=== PATIENT | male | born 1965 ===

== ENCOUNTER 2017-10-21 11:21 | Inpatient (IN) | payer BC, OTHER ==
[2017-10-21] MEDS ORDERED: Ondansetron 4 MG/2 ML SDV IVPUSH ONE (11:32)
--- NOTE | 2017-10-21 11:32 | EDM.PDOC ---
ED HPI GENERAL MEDICAL PROBLEM - General Chief Complaint: Gastrointestinal Problem Stated Complaint: AMB Time Seen by Provider: 10/21/17 11:32 Source of Information: Reports: Patient - History of Present Illness INITIAL COMMENTS - FREE TEXT/NARRATIVE: HISTORY AND PHYSICAL: History of present illness: [Patient presents with abdominal discomfort and bloating is had several episodes of vomiting several episodes of diarrhea since last night he notes a slight umbilical hernia today which she has not noticed in the past He has history of hydrocele no fever chest pain shortness breath headache dizziness or palpitation no urine symptoms Denies previous colonoscopy or diagnosis of Crohn's disease Review of systems: As per history of present illness and below otherwise all systems reviewed and negative. Past medical history: As per history of present illness and as reviewed below otherwise noncontributory. Surgical history: As per history of present illness and as reviewed below otherwise noncontributory. Social history: No reported history of drug or alcohol abuse. Family history: As per history of present illness and as reviewed below otherwise noncontributory. Physical exam: HEENT: Atraumatic, normocephalic, pupils reactive, negative for conjunctival pallor or scleral icterus, mucous membranes moist, throat clear, neck supple, nontender, trachea midline. Lungs: Clear to auscultation, breath sounds equal bilaterally, chest nontender. Heart: S1S2, regular, negative for clicks, rubs, or JVD. Abdomen: Soft, diffusely tender nondistended yet firm. Negative for masses or hepatosplenomegaly. Negative for costovertebral tenderness. Umbilical hernia noted Pelvis: Stable nontender. Genitourinary: Large varicocele noted on the right Rectal: Deferred. Extremities: Atraumatic, negative for cords or calf pain. Neurovascular unremarkable. Neuro: Awake, alert, oriented. Cranial nerves II through XII unremarkable. Cerebellum unremarkable. Motor and sensory unremarkable throughout. Exam nonfocal. Diagnostics: [CBC CMP UA Abdomen flat and upright ] Therapeutics: [Normal saline 500 mL per hour Zofran 8 mg IV ] Impression: Ileus versus early partial bowel obstruction Nausea vomiting diarrhea] Right varicocele Definitive disposition and diagnosis as appropriate pending reevaluation and review of above. Abdominal Pain Score (Numeric/FACES): 0 - Related Data Allergies Allergy/AdvReac Type Severity Reaction Status Date / Time acetaminophen [From Percocet] Allergy Vomiting Verified 07/15/16 01:35 latex Allergy Rash Verified 07/15/16 01:35 oxycodone [From Percocet] Allergy Vomiting Verified 07/15/16 01:35 Home Meds: Home Meds . [No Known Home Meds] 07/15/16 [History] Past Medical History - Past Health History Medical/Surgical History: Denies Medical/Surgical History - Infectious Disease History Infectious Disease History: Reports: Chicken Pox, Measles, Mumps Social & Family History - Family History Family Medical History: Noncontributory - Tobacco Use Smoking Status *Q: Current Every Day Smoker Years of Tobacco use: 30 Packs/Tins Daily: 0.5 - Caffeine Use Caffeine Use: Reports: Coffee, Energy Drinks, Soda, Tea - Recreational Drug Use Recreational Drug Use: No ED ROS GENERAL - Review of Systems Review Of Systems: ROS reveals no pertinent complaints other than HPI. ED EXAM, GENERAL - Physical Exam Exam: See Below Course - Vital Signs Last Recorded V/S: Last Vital Signs Temp 99.0 F 10/21/17 11:25 Pulse 86 10/21/17 11:25 Resp 18 10/21/17 11:25 BP 112/69 10/21/17 11:25 Pulse Ox 96 10/21/17 11:25 - Orders/Labs/Meds Orders: Active Orders 24 hr Category Date Time Status Sodium Chloride 0.9% [Normal Saline] 500 ml Med 10/21/17 11:45 Active IV STAT Medication Orders Sodium Chloride (Normal Saline) 500 mls @ 999 mls/hr IV STAT IRIS Labs: Laboratory Tests 10/21/17 10/21/17 10/21/17 Range/Units 11:45 11:45 12:00 WBC 18.06 H (4.0-11.0) K/uL RBC 4.69 (4.50-5.90) M/uL Hgb 15.0 (13.0-17.0) g/dL Hct 45.2 (38.0-50.0) % MCV 96.4 (80.0-98.0) fL MCH 32.0 (27.0-32.0) pg MCHC 33.2 (31.0-37.0) g/dL RDW Std Deviation 52.0 (28.0-62.0) fl RDW Coeff of Lino 15 (11.0-15.0) % Plt Count 227 (150-400) K/uL MPV 9.00 (7.40-12.00) fL Neut % (Auto) 80.3 H (48.0-80.0) % Lymph % (Auto) 10.2 L (16.0-40.0) % [place] % (Auto) 8.5 (0.0-15.0) % Eos % (Auto) 0.9 (0.0-7.0) % Baso % (Auto) 0.1 (0.0-1.5) % Neut # (Auto) 14.5 H (1.4-5.7) K/uL Lymph # (Auto) 1.8 (0.6-2.4) K/uL [place] # (Auto) 1.5 H (0.0-0.8) K/uL Eos # (Auto) 0.2 (0.0-0.7) K/uL Baso # (Auto) 0.0 (0.0-0.1) K/uL Nucleated RBC % 0.0 /100WBC Nucleated RBCs # 0 K/uL Sodium 140 (136-146) mmol/L Potassium 3.8 (3.5-5.1) mmol/L Chloride 103 (98-110) mmol/L Carbon Dioxide 24 (21-31) mmol/L BUN 23 (6.0-23.0) mg/dL Creatinine 1.0 (0.6-1.5) mg/dL Est Cr Clr Drug Dosing 88.31 mL/min Estimated GFR (MDRD) > 60.0 ml/min Glucose 124 H (60-110) mg/dL Calcium 10.3 (8.8-10.8) mg/dL Total Bilirubin 0.9 (0.1-1.5) mg/dL AST 31 (5-40) IU/L ALT 32 (8-54) IU/L Alkaline Phosphatase 76 (40-150) Total Protein 7.9 (6.0-8.0) g/dL Albumin 4.6 (3.5-5.0) g/dL Globulin 3.3 (2.0-3.5) g/dL Albumin/Globulin Ratio 1.4 (1.3-2.8) Lipase 13 (7-80) U/L Urine Color YELLOW Urine Appearance CLEAR Urine pH 6.0 (5.0-8.0) Ur Specific [place] 1.025 (1.001-1.035) Urine Protein 30 (NEGATIVE) mg/dL Urine Glucose (UA) NEGATIVE (NEGATIVE) mg/dL Urine Ketones 15 H (NEGATIVE) mg/dL Urine Occult Blood NEGATIVE (NEGATIVE) Urine Nitrite NEGATIVE (NEGATIVE) Urine Bilirubin NEGATIVE (NEGATIVE) Urine Urobilinogen 0.2 (<2.0) EU/dL Ur Leukocyte Esterase NEGATIVE (NEGATIVE) Urine RBC 0-1 (0-2/HPF) Urine WBC 13-16 (0-5/HPF) Ur Epithelial Cells OCCASIONAL (NONE-FEW) Urine Bacteria FEW (NEGATIVE) Urine Mucus MODERATE (NONE-MOD) Meds: Medications Generic Name Dose Route Start Last Admin Trade Name Freq PRN Reason Stop Dose Admin Sodium Chloride 500 mls @ 999 mls/hr 10/21/17 11:45 Normal Saline IV STAT IRIS Discontinued Medications Generic Name Dose Route Start Last Admin Trade Name Freq PRN Reason Stop Dose Admin Iopamidol 90 ml 10/21/17 12:57 10/21/17 12:57 Isovue Multipack-370 (76%) IVPUSH 10/21/17 12:58 90 ml ONETIME STA Administration Ondansetron HCl 8 mg 10/21/17 11:32 10/21/17 12:02 Zofran IVPUSH 10/21/17 11:33 8 mg ONETIME ONE Administration Departure - Departure Time of Disposition: 14:00 Disposition: Admitted As Inpatient 64 Condition: Fair Clinical Impression: Ileus, Vomiting, Diarrhea - Discharge Information Forms: ED Department Discharge - My Orders Last 24 Hours: My Active Orders 10/21/17 11:45 Sodium Chloride 0.9% [Normal Saline] 500 ml IV STAT - Assessment/Plan Last 24 Hours: My Active Orders 10/21/17 11:45 Sodium Chloride 0.9% [Normal Saline] 500 ml IV STAT
[2017-10-21] MEDS ORDERED: Sodium Chloride 0.9% 500 ML IV SCH ×2 (11:45→14:15)
[2017-10-21 12:18] LABS: CHLORIDE,CL 103 mmol/L (98-110); SODIUM,NA 140 mmol/L (136-146)
[2017-10-21] MEDS ORDERED: Iopamidol 755 MG/ML 500 ML Multipack Bottle IVPUSH STA (12:57)
--- NOTE | 2017-10-21 13:25 | CT ---
CT of the abdomen and pelvis with contrast. HISTORY: Pain TECHNIQUE: Axial CT images were obtained of the abdomen and pelvis following administration of 90 mL of Isovue-370 in the left forearm without complication. Coronal and sagittal reconstructions obtained . FINDINGS: Mild dependent atelectasis bilaterally. The liver, spleen, adrenal glands, and pancreas appear normal. The gallbladder is normal. No bulky re troperitoneal lymphadenopathy or abdominal ascites. The kidneys enhance and function symmetrically without evidence of obstructive uropathy. The large and small bowel are mildly prominent in caliber with small bowel measuring up to 3.9 cm. Po rtions of the distal small bowel are decompressed and enhancing. The appendix is normal. Small right hydrocele and fluid along the inguinal canal. Otherwise no definite evidence of free fluid. No free a ir. No suspicious osseous abnormalities identified. IMPRESSION: 1. Dilated loops of small bowel with focal areas of decompression and enhancement. The overall pictur e is of an ileus or partial bowel obstruction however given the skip areas and underlying inflammator y condition or Crohn's disease should be considered. 2. Right hydrocele.
[2017-10-21] MEDS ORDERED: Metoclopramide 10 MG/2 ML SDV IV ONE (14:02)
[2017-10-21] MEDS ORDERED: Ondansetron 4 MG/2 ML SDV IVPUSH PRN (14:52)
[2017-10-21] MEDS ORDERED: Morphine 4 MG/ML Syringe IVPUSH PRN (14:52)
--- NOTE | 2017-10-21 15:07 | PCM.HP ---
H&P History of Present Illness - General Date of Service: 10/21/17 Admit Problem/Dx: Admission Diagnosis/Problem Admission Diagnosis/Problem Ileus Source of Information: Patient History Limitations: Reports: No Limitations - History of Present Illness Initial Comments - Free Text/Narative: This 52 year old male with little pmh, presented to the ED today with concerns of N/V, diarrhea and dehydration. He reports last evening about midnight he started having diarrhea. Approximately 1 hr later he started becoming nauseated and vomiting. He reports this was accompanied by abdominal distension and abdominal cramping. He denies black or bloody BMs, and no hematemesis. He denies recent travel, antibiotic use or questionable food. He reports 2 or so years ago he had Salmonella for contaminated Spinach. He reports feeling very dehydrated, lips and mouth are dry with very little saliva production. Small fevers and chills, but did not check his temperature. No URI symptoms, no chest pain or palpitations. No urinary symptoms. He denies CAD, DM or abdominal surgeries. He has never been diagnosed with IBS/IBD and has never had a diagnostic colonscopy. He reports being given cards to check stool and those came back normal. He reports 30+ years of smoking history, currently smokes 5-6 cigarettes daily, social alcohol use, and no recreational drug use. In the ED, leukocytosis noted at 18,060. CMP WNL. UA negative, some pyuria noted. Temp 99.0 otherwise VS stable, no tachycardia or hypotension. He was given Zofran IV. Abd/pelvis CT revealed dilated loops of small bowel with focal areas of decompression and enhancement, overall picture is of ileus or partial bowel obstruction however given the skips areas an underlying inflammatory condition of Crohn's disease could be considers. He will be admitted inpatient for possible ileus, possible partial bowel obstruction. Abdominal Pain Score (Numeric/FACES): 0 - Related Data Allergies/Adverse Reactions: Allergies Allergy/AdvReac Type Severity Reaction Status Date / Time acetaminophen [From Percocet] Allergy Vomiting Verified 07/15/16 01:35 latex Allergy Rash Verified 07/15/16 01:35 oxycodone [From Percocet] Allergy Vomiting Verified 07/15/16 01:35 Home Medications: Home Meds . [No Known Home Meds] 07/15/16 [History] Past Medical History - Past Health History Medical/Surgical History: Denies Medical/Surgical History Cardiovascular History: Reports: None. Denies: Afib, Blood Clots/VTE/DVT, CAD, High Cholesterol, Hypertension, [place] Respiratory History: Reports: None. Denies: Asthma, COPD, PE Gastrointestinal History: Reports: None. Denies: Bowel Obstruction, GERD, GI Bleed, Inflammatory Bowel Disease, Irritable Bowel Syndrome Genitourinary History: Reports: None. Denies: Acute Renal Failure, Chronic Renal Insuffiency Musculoskeletal History: Reports: None Neurological History: Reports: None. Denies: CVA, Migraines, TIA Psychiatric History: Reports: None Endocrine/Metabolic History: Reports: None. Denies: Diabetes, Type II, Hypothyroidism Dermatologic History: Reports: None - Infectious Disease History Infectious Disease History: Reports: Chicken Pox, Measles, Mumps - Past Surgical History GI Surgical History: Reports: None Musculoskeletal Surgical History: Reports: Arthroscopic Knee (L knee) Social & Family History - Family History Family Medical History: Noncontributory - Tobacco Use Smoking Status *Q: Current Every Day Smoker Tobacco Use Within Last Twelve Months: Cigarettes Years of Tobacco use: 30 Packs/Tins Daily: 0.5 - Caffeine Use Caffeine Use: Reports: Coffee, Energy Drinks, Soda, Tea - Alcohol Use Alcohol Use History: No Alcohol Use Frequency: Socially - Recreational Drug Use Recreational Drug Use: No - Living Situation & Occupation Living situation: Reports: Occupation: 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 Denies: Headaches, Sinus Congestion, Sore Throat, Visual Changes Pulmonary: Reports: No Symptoms. Denies: Shortness of Breath, Wheezing, Cough, Sputum Cardiovascular: Reports: Lightheadedness. Denies: Chest Pain, Palpitations, Edema Gastrointestinal: Reports: Abdominal Pain (some cramping diffusely), Diarrhea, Distension, Nausea, Vomiting. Denies: Black Stool, Bloody Stool, Hematemesis, Hematochezia Genitourinary: Reports: No Symptoms. Denies: Dysuria, Frequency, Burning, Pain Musculoskeletal: Reports: No Symptoms. Denies: Neck Pain Skin: Reports: No Symptoms Psychiatric: Reports: No Symptoms. Denies: Confusion Neurological: Reports: No Symptoms. Denies: Confusion Hematologic/Lymphatic: Reports: No Symptoms. Denies: Anemia Exam - Exam Exam: See Below - Vital Signs Vital Signs: Last Vital Signs Temp 100.4 F 10/21/17 14:53 Pulse 68 10/21/17 14:53 Resp 18 10/21/17 14:53 BP 109/67 10/21/17 14:53 Pulse Ox 96 10/21/17 14:53 Weight: 73.936 kg - Exam General: Alert, Oriented, Cooperative HEENT: Conjunctiva Clear. No: Mucosa Moist & [place] (mouth and lips very dry and cracking. ) Neck: Supple, Trachea Midline, Full Range of Motion. No: Lymphadenopathy Lungs: Clear to Auscultation, Normal Respiratory Effort Cardiovascular: Regular Rate, Regular Rhythm GI/Abdominal Exam: Normal Bowel Sounds, Soft, No Mass, Distended, Tender (scant tenderness throughout). No: Guarding, Rigid Extremities: Normal Inspection, Normal Range of Motion, Non-Tender, No Pedal Edema, Normal Capillary Refill Skin: Warm, Dry, Intact Neuro Extensive - Mental Status: Alert, Oriented x3, Normal Mood/Affect, Normal Cognition Neuro Extensive - Motor, Sensory, Reflexes: CN II-XII Intact, Normal Gait Psychiatric: Alert, Normal Affect, Normal Mood - Patient Data Result Diagrams: 10/21/17 11:45 10/21/17 11:45 *Q Meaningful Use (ADM) - VTE *Q VTE Criteria *Q: - VTE Risk Assess *Q Each Risk Factor Represents 1 Point: Age 41 - 59 years, Obesity ( BMI > 25 kg/m2 ) Total Score 1 Point Risk Factors: 2 Each Risk Factor Represents 2 Points: None Total Score 2 Point Risk Factors: 0 Each Risk Factor Represents 3 Points: None Total Score 3 Point Risk Factors: 0 Each Risk Factor Represents 5 Points: None Total Score 5 Point Risk Factors: 0 Venous Thromboembolism Risk Factor Score *Q: 2 - Stroke *Q Stroke Criteria *Q: - AMI *Q AMI Criteria *Q: - Problem List (1) Ileus SNOMED Code(s): 702207440 ICD Code: K56.7 - ILEUS, UNSPECIFIED Status: Acute Current Visit: Yes (2) Partial bowel obstruction SNOMED Code(s): 94783665 ICD Code: K56.600 - PARTIAL INTESTINAL OBSTRUCTION, UNSPECIFIED TO CAUSE Status: Acute Current Visit: Yes Qualifiers: Intestinal obstruction type: unspecified Qualified Code(s): K56.600 - Partial intestinal obstruction, unspecified as to cause (3) Nausea & vomiting SNOMED Code(s): 70398743 ICD Code: R11.2 - NAUSEA WITH VOMITING, UNSPECIFIED Status: Acute Current Visit: Yes Qualifiers: Vomiting Intractability: non-intractable (4) Diarrhea SNOMED Code(s): 12249960 ICD Code: R19.7 - DIARRHEA, UNSPECIFIED Status: Acute Current Visit: Yes Problem List Initiated/Reviewed/Updated: Yes Orders Last 24hrs: Active Orders 24 hr Category Date Time Status Ambulate [RC] ASDIRECTED Care 10/21/17 14:52 Ordered Intake and Output [RC] QSHIFT Care 10/21/17 14:53 Ordered May Shower [RC] ASDIRECTED Care 10/21/17 14:52 Ordered Oxygen Therapy [RC] PRN Care 10/21/17 14:52 Ordered Up ad Anastasia [RC] ASDIRECTED Care 10/21/17 14:52 Ordered VTE/DVT Education [RC] PER UNIT ROUTINE Care 10/21/17 14:52 Ordered Vital Signs [RC] Q4H Care 10/21/17 14:52 Ordered NPO [Nothing Per Oral Diet] [DIET] Diet 10/21/17 Dinner Ordered BASIC METABOLIC PANEL,BMP [CHEM] AM Lab 10/22/17 05:11 Ordered BASIC METABOLIC PANEL,BMP [CHEM] AM Lab 10/23/17 05:11 Ordered BASIC METABOLIC PANEL,BMP [CHEM] AM Lab 10/24/17 05:11 Ordered CBC WITH AUTO DIFF [HEME] AM Lab 10/22/17 05:11 Ordered CBC WITH AUTO DIFF [HEME] AM Lab 10/23/17 05:11 Ordered CBC WITH AUTO DIFF [HEME] AM Lab 10/24/17 05:11 Ordered Enoxaparin [Lovenox] Med 10/22/17 09:00 Ordered 30 mg SUBCUT DAILY Lactated Ringers @ 125 MLS/HR(1000ml) Med 10/21/17 15:00 Ordered Lactated Ringers [Ringers, Lactated] 1,000 ml IV ASDIRECTED Levofloxacin/Dextrose 5%-Water [Levaquin in D5W 750 MG/ Med 10/21/17 15:00 Ordered 150 ML] 750 mg Premix Bag 1 bag IV Q24H Morphine Med 10/21/17 14:52 Ordered 3 mg IVPUSH Q2H PRN Ondansetron [Zofran] Med 10/21/17 14:52 Ordered 4 mg IVPUSH Q4H PRN Pantoprazole [ProTONIX IV] Med 10/21/17 14:54 Ordered 40 mg IV Q12HR Sodium Chloride 0.9% [Normal Saline] 500 ml Med 10/21/17 14:15 Active IV STAT metroNIDAZOLE/Normal Saline [Flagyl 500 MG in NS 100 ML Med 10/21/17 14:56 Ordered ] 500 mg Premix Bag 1 bag IV QID Resuscitation Status Routine Resus Stat 10/21/17 14:52 Ordered Medication Orders Enoxaparin Sodium (Lovenox) 30 mg SUBCUT DAILY IRIS Sodium Chloride (Normal Saline) 500 mls @ 999 mls/hr IV STAT IRIS Sodium Chloride (Normal Saline) 500 mls @ 150 mls/hr IV STAT IRIS Lactated Ringer's (Ringers, Lactated) 1,000 mls @ 125 mls/hr IV ASDIRECTED IRIS Levofloxacin/Dextrose 750 mg/ (Premix) 150 mls @ 100 mls/hr IV Q24H IRIS Metronidazole 500 mg/ Premix 100 mls @ 100 mls/hr IV QID IRIS Morphine Sulfate (Morphine) 3 mg IVPUSH Q2H PRN PRN Reason: Pain (severe 7-10) Stop: 10/22/17 14:54 Ondansetron HCl (Zofran) 4 mg IVPUSH Q4H PRN PRN Reason: Nausea Pantoprazole Sodium (Protonix Iv) 40 mg IV Q12HR [facility] Assessment/Plan Comment:: This 52 year old male admitted with possible ileus or possible partial bowel obstruction, N/V and diarrhea 1. Possible ileus or possible partial bowel obstruction: Will consult Dr Collado , she is aware of patient. This may be from viral/bacterial gastroenteritis. Will attempt to obtain stool studies. Will place on bowel rest, administer IVFs , as well as Levaquin and Flagyl. Morphine for pain control PRN, he reports he has had this before with his Salmonella infection and tolerates it well. Zofran PRN nausea. VTE: Lovenox Dispo: 1-3 days pending improvement
[2017-10-21] MEDS: Lactated Ringers 1,000 ML IV SCH (15:19)
[2017-10-21] MEDS: Pantoprazole 40 MG Vial IV SCH ×2 (15:23→21:09)
[2017-10-21] MEDS: Levofloxacin/Dextrose 5%-Water 750 MG in Premix Bag 1 BAG IV SCH (15:27)
[2017-10-21] MEDS ORDERED: Lactated Ringers 1,000 ML IV ONE (15:30)
--- NOTE | 2017-10-21 16:33 | PCM.CONS ---
H&P History of Present Illness - General Date of Service: 10/21/17 Admit Problem/Dx: Admission Diagnosis/Problem Admission Diagnosis/Problem Ileus Source of Information: Patient History Limitations: Reports: No Limitations - History of Present Illness Initial Comments - Free Text/Narative: Patient is a 52 year male who presents with 12-24 hours of abdominal pain. This was associated with diarrhea, abdominal bloating nausea and vomiting. He had salmonella infection in the past and said that this felt similar. He works as a head chef on a [employer] and states that a GI bug recently went through. He denies melena, hematochezia, or hematemesis. He denies fevers or chills. He has never had issues with his bowels in the past (other than a salmonella infection). He knows that he has a right sided hydrocele. He denies ever having a colonoscopy. Abdominal Pain Score (Numeric/FACES): 0 - Related Data Allergies/Adverse Reactions: Allergies Allergy/AdvReac Type Severity Reaction Status Date / Time acetaminophen [From Percocet] Allergy Vomiting Verified 07/15/16 01:35 latex Allergy Rash Verified 07/15/16 01:35 oxycodone [From Percocet] Allergy Vomiting Verified 07/15/16 01:35 Home Medications: Home Meds . [No Known Home Meds] 07/15/16 [History] Past Medical History - Past Health History Medical/Surgical History: Denies Medical/Surgical History Cardiovascular History: Reports: None. Denies: Afib, Blood Clots/VTE/DVT, CAD, High Cholesterol, Hypertension, [place] Respiratory History: Reports: None. Denies: Asthma, COPD, PE Gastrointestinal History: Reports: None. Denies: Bowel Obstruction, GERD, GI Bleed, Inflammatory Bowel Disease, Irritable Bowel Syndrome Genitourinary History: Reports: None. Denies: Acute Renal Failure, Chronic Renal Insuffiency Musculoskeletal History: Reports: None Neurological History: Reports: None. Denies: CVA, Migraines, TIA Psychiatric History: Reports: None Endocrine/Metabolic History: Reports: None. Denies: Diabetes, Type II, Hypothyroidism Other Endocrine/Metabolic History: states he was pre diabetic Dermatologic History: Reports: None - Infectious Disease History Infectious Disease History: Reports: Chicken Pox, Measles, Mumps - Past Surgical History GI Surgical History: Reports: None Musculoskeletal Surgical History: Reports: Arthroscopic Knee (L knee) Social & Family History - Family History Family Medical History: Noncontributory - Tobacco Use Smoking Status *Q: Current Every Day Smoker Years of Tobacco use: 30 Packs/Tins Daily: 0.5 - Caffeine Use Caffeine Use: Reports: Coffee, Energy Drinks, Soda, Tea - Alcohol Use Date of Last Drink: 08/29/17 - Recreational Drug Use Recreational Drug Use: No - Living Situation & Occupation Living situation: Reports: 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 General: Reports: No Symptoms Pulmonary: Reports: No Symptoms Cardiovascular: Reports: No Symptoms Gastrointestinal: Reports: Abdominal Pain, Anorexia, Diarrhea, Decreased Appetite, Nausea, Vomiting Exam - Exam Exam: See Below - Vital Signs Vital Signs: Last Vital Signs Temp 37.2 C 10/21/17 15:05 Pulse 64 10/21/17 15:05 Resp 18 10/21/17 15:05 BP 122/77 10/21/17 15:05 Pulse Ox 96 10/21/17 15:05 Weight: 73.936 kg - Exam General: Alert, Oriented HEENT: Conjunctiva Clear, Posterior Pharynx Clear, Pupils Equal, Other (mucosa dry ) Lungs: Clear to Auscultation, Normal Respiratory Effort Cardiovascular: Regular Rate, Regular Rhythm GI/Abdominal Exam: Soft, Non-Tender, No Mass, Other (mild distension throughout. Small reducible umbilical hernia. ) (Male) Exam: No Hernia, Normal Inspection. No: Inguinal Lymphadenopathy, Scrotal Swelling Back Exam: Normal Inspection Extremities: Normal Inspection, No Pedal Edema Skin: Warm, Dry, Intact Neuro Extensive - Mental Status: Alert, Oriented x3, Normal Mood/Affect, Normal Cognition - Patient Data Result Diagrams: 10/21/17 11:45 10/21/17 11:45 Consult PN Assessment/Plan Procedures: Procedures ASSAY OF BLOOD/URIC ACID (07/15/16) COMPLETE CBC W/AUTO DIFF WBC (07/15/16) CT LOWER EXTREMITY W/O DYE (07/20/16) EMERGENCY DEPT VISIT (07/15/16) ROUTINE VENIPUNCTURE (07/15/16) X-RAY EXAM OF FOOT (07/15/16) (1) Diarrhea SNOMED Code(s): 06104542 Code(s): R19.7 - DIARRHEA, UNSPECIFIED Current Visit: Yes (2) Ileus SNOMED Code(s): 339938988 Code(s): K56.7 - ILEUS, UNSPECIFIED Current Visit: Yes (3) Nausea & vomiting SNOMED Code(s): 23912075 Code(s): R11.2 - NAUSEA WITH VOMITING, UNSPECIFIED Current Visit: Yes Qualifiers: Vomiting Intractability: non-intractable (4) Partial bowel obstruction SNOMED Code(s): 25426986 Code(s): K56.600 - PARTIAL INTESTINAL OBSTRUCTION, UNSPECIFIED TO CAUSE Current Visit: Yes Qualifiers: Intestinal obstruction type: unspecified Qualified Code(s): K56.600 - Partial intestinal obstruction, unspecified as to cause Problem List Initiated/Reviewed/Updated: Yes Plan: The patient has a benign appearing abdomen with just mild distension and no tenderness. This is most likely an ileus or partial sbo due to infectious etiology. I would continue with NPO status and resuscitation. The patient already feels like he is less distended, denies any nausea, and has not had a BM since admission. Stool cultures have been ordered. If he is feeling better in the morning and his labs are improving can try to advance diet slowly. The patient is not from here, but should have a follow up colonoscopy after discharge with a surgeon or GI specialist back in [place] (where he lives). Will continue to follow patient while here. Please call with any questions or concerns.
[2017-10-21] MEDS: metroNIDAZOLE/Normal Saline 500 MG in Premix Bag 1 BAG IV SCH ×2 (17:06→23:32)
[2017-10-22] MEDS: Lactated Ringers 1,000 ML IV SCH ×2 (03:48→13:54)
[2017-10-22] MEDS: metroNIDAZOLE/Normal Saline 500 MG in Premix Bag 1 BAG IV SCH ×3 (05:35→17:37)
[2017-10-22 06:25] LABS: CHLORIDE,CL 108 mmol/L (98-110); SODIUM,NA 141 mmol/L (136-146)
--- NOTE | 2017-10-22 07:32 | PCM.PN ---
- General Info Date of Service: 10/22/17 Admission Dx/Problem (Free Text): Admission Diagnosis/Problem Admission Diagnosis/Problem Ileus Subjective Update: Doing much better this am. Passing gas and did have "runny" loose stool this am. Abd pain has been relieved. No pain. Feeling very hungry. Functional Status: Reports: Pain Controlled, Ambulating. Denies: New Symptoms - Review of Systems General: Denies: Fever, Weakness, Fatigue HEENT: Denies: Headaches, Visual Changes Pulmonary: Denies: Shortness of Breath, Hemoptysis Cardiovascular: Denies: Chest Pain, Palpitations, Edema Gastrointestinal: Reports: Diarrhea. Denies: Abdominal Pain, Constipation, Nausea, Vomiting Genitourinary: Denies: Dysuria, Hematuria Musculoskeletal: Denies: Neck Pain, Leg Pain Skin: Denies: Cyanosis Neurological: Denies: Confusion, Dizziness, Headache Psychiatric: Denies: Confusion - Patient Data Vitals - Most Recent: Last Vital Signs Temp 98.1 F 10/22/17 04:00 Pulse 58 L 10/22/17 04:00 Resp 16 10/22/17 04:00 BP 108/63 10/22/17 04:00 Pulse Ox 95 10/22/17 04:00 Weight - Most Recent: 73.936 kg I&O - Last 24 Hours: Intake & Output 10/21/17 10/22/17 10/22/17 22:59 06:59 14:59 Intake Total 250 2066 Output Total 375 Balance 250 1691 Lab Results Last 24 Hours: Laboratory Results - last 24 hr 10/22/17 10/22/17 Range/Units 05:35 05:35 WBC 5.92 (4.0-11.0) K/uL RBC 4.22 L (4.50-5.90) M/uL Hgb 13.5 (13.0-17.0) g/dL Hct 41.2 (38.0-50.0) % MCV 97.6 (80.0-98.0) fL MCH 32.0 (27.0-32.0) pg MCHC 32.8 (31.0-37.0) g/dL RDW Std Deviation 53.9 (28.0-62.0) fl RDW Coeff of Lino 15 (11.0-15.0) % Plt Count 200 (150-400) K/uL MPV 8.80 (7.40-12.00) fL Neut % (Auto) 44.4 L (48.0-80.0) % Lymph % (Auto) 38.5 (16.0-40.0) % [place] % (Auto) 13.5 (0.0-15.0) % Eos % (Auto) 3.4 (0.0-7.0) % Baso % (Auto) 0.2 (0.0-1.5) % Neut # (Auto) 2.6 (1.4-5.7) K/uL Lymph # (Auto) 2.3 (0.6-2.4) K/uL [place] # (Auto) 0.8 (0.0-0.8) K/uL Eos # (Auto) 0.2 (0.0-0.7) K/uL Baso # (Auto) 0.0 (0.0-0.1) K/uL Nucleated RBC % 0.0 /100WBC Nucleated RBCs # 0 K/uL Sodium 141 (136-146) mmol/L Potassium 4.3 (3.5-5.1) mmol/L Chloride 108 (98-110) mmol/L Carbon Dioxide 26 (21-31) mmol/L BUN 18 (6.0-23.0) mg/dL Creatinine 0.9 (0.6-1.5) mg/dL Est Cr Clr Drug Dosing 98.12 mL/min Estimated GFR (MDRD) > 60.0 ml/min Glucose 92 (60-110) mg/dL Calcium 8.5 L (8.8-10.8) mg/dL [place] Results Last 24 Hours: Microbiology 10/21/17 16:39 Clostridium difficile Toxin A&B (M) - Final Stool / Feces Negative for C.Diff Toxin/AG Stool for WBCs - Final POSITIVE FOR WBC'S 10/21/17 16:39 Campylobacter Antigen Assay - Final Stool / Feces NEGATIVE CAMPYLOBACTER AG Med Orders - Current: Current Medications Enoxaparin Sodium (Lovenox) 30 mg SUBCUT DAILY ON LICENSE OF [facility] Lactated Ringer's (Ringers, Lactated) 1,000 mls @ 125 mls/hr IV ASDIRECTED [facility] Last Admin: 10/22/17 03:48 Dose: 125 mls/hr Levofloxacin/Dextrose 750 mg/ (Premix) 150 mls @ 100 mls/hr IV Q24H ON LICENSE OF [facility] Last Admin: 10/21/17 15:27 Dose: 100 mls/hr Metronidazole 500 mg/ Premix 100 mls @ 100 mls/hr IV QID ON LICENSE OF [facility] Last Admin: 10/22/17 05:35 Dose: 100 mls/hr Morphine Sulfate (Morphine) 3 mg IVPUSH Q2H PRN PRN Reason: Pain (severe 7-10) Stop: 10/22/17 14:54 Ondansetron HCl (Zofran) 4 mg IVPUSH Q4H PRN PRN Reason: Nausea Pantoprazole Sodium (Protonix Iv) 40 mg IV Q12HR ON LICENSE OF [facility] Last Admin: 10/21/17 21:09 Dose: 40 mg Discontinued Medications Sodium Chloride (Normal Saline) 500 mls @ 999 mls/hr IV STAT [facility] Sodium Chloride (Normal Saline) 500 mls @ 150 mls/hr IV STAT [facility] Lactated Ringer's (Ringers, Lactated) 1,000 mls @ 999 mls/hr IV .BOLUS ONE Stop: 10/21/17 16:30 Last Admin: 10/21/17 15:08 Dose: 999 mls/hr Iopamidol (Isovue Multipack-370 (76%)) 90 ml IVPUSH ONETIME STA Stop: 10/21/17 12:58 Last Admin: 10/21/17 12:57 Dose: 90 ml Metoclopramide HCl (Reglan) 10 mg IV ONETIME ONE Stop: 10/21/17 14:03 Last Admin: 10/21/17 16:55 Dose: Not Given Ondansetron HCl (Zofran) 8 mg IVPUSH ONETIME ONE Stop: 10/21/17 11:33 Last Admin: 10/21/17 12:02 Dose: 8 mg - Exam Quality Assessment: DVT Prophylaxis General: Alert, Oriented, Cooperative, No Acute Distress HEENT: Pupils Equal, Pupils Reactive, EOMI, Mucous Membr. Moist/[place] Neck: Supple, Trachea Midline, No JVD Lungs: Clear to Auscultation, Normal Respiratory Effort Cardiovascular: Regular Rate, Regular Rhythm, No Murmurs GI/Abdominal Exam: Normal Bowel Sounds, Soft, Non-Tender, No Organomegaly, No Distention (Male) Exam: Deferred Back Exam: Normal Inspection Extremities: Normal Inspection, Non-Tender, No Pedal Edema, Normal Capillary Refill Peripheral Pulses: 2+: Radial (L), Radial (R), Posterior Tibial (L), Posterior Tibial (R), Dorsalis Pedis (L), Dorsalis Pedis (R) Skin: Warm, Dry, Intact Neurological: No New Focal Deficit Psy/Mental Status: Alert, Normal Affect, Normal Mood - Problem List & Annotations (1) Diarrhea SNOMED Code(s): 99112824 Code(s): R19.7 - DIARRHEA, UNSPECIFIED Status: Acute Priority: High Current Visit: Yes (2) Ileus SNOMED Code(s): 920148691 Code(s): K56.7 - ILEUS, UNSPECIFIED Status: Acute Priority: High Current Visit: Yes (3) Nausea & vomiting SNOMED Code(s): 27239043 Code(s): R11.2 - NAUSEA WITH VOMITING, UNSPECIFIED Status: Resolved Priority: High Current Visit: Yes Qualifiers: Vomiting Intractability: non-intractable (4) Partial bowel obstruction SNOMED Code(s): 65060550 Code(s): K56.600 - PARTIAL INTESTINAL OBSTRUCTION, UNSPECIFIED TO CAUSE Status: Acute Priority: High Current Visit: Yes Qualifiers: Intestinal obstruction type: unspecified Qualified Code(s): K56.600 - Partial intestinal obstruction, unspecified as to cause - Problem List Review Problem List Initiated/Reviewed/Updated: Yes - Plan Plan:: 52 year old male admitted 10/21/17 with possible ileus or possible partial bowel obstruction, N/V and diarrhea. 1. Possible ileus or possible partial bowel obstruction: Stool studies negative. Passing gas and 1 bm this morning. Will advance diet as tolerated. Cont. Levaquin and Flagyl day 2 as may be viral/bacterial gastroenteritis. Cont. to be afebrile with no leukocytosis. Cont. Morphine for pain control PRN and Zofran PRN fpr Nausea nausea. VTE: SCD,Lovenox Dispo: 1-2 days pending improvement. Will need follow-up EGD/Colonscopy after discharge in [place], [place] where patient is from.
[2017-10-22] MEDS: Pantoprazole 40 MG Vial IV SCH ×2 (08:55→21:17)
[2017-10-22] MEDS: Enoxaparin 30 MG/0.3 ML Syringe SUBCUT SCH ×2 (08:55→09:01)
[2017-10-22] MEDS ORDERED: Calcium Carbonate 500 MG Tab.Chew PO ONE (10:07)
[2017-10-22] MEDS: Levofloxacin/Dextrose 5%-Water 750 MG in Premix Bag 1 BAG IV SCH (15:28)
[2017-10-23] MEDS: metroNIDAZOLE/Normal Saline 500 MG in Premix Bag 1 BAG IV SCH ×2 (00:19→06:57)
[2017-10-23] MEDS: Lactated Ringers 1,000 ML IV SCH (01:43)
[2017-10-23 06:38] LABS: CHLORIDE,CL 110 mmol/L (98-110); SODIUM,NA 140 mmol/L (136-146)
[2017-10-23] MEDS ORDERED: Calcium Carbonate 500 MG Tab.Chew PO ONE (07:31)
[2017-10-23 08:39] VITALS: BP 123/60
[2017-10-23] MEDS: Pantoprazole 40 MG Vial IV SCH (08:46)
[2017-10-23] MEDS: Enoxaparin 30 MG/0.3 ML Syringe SUBCUT SCH (08:50)
--- NOTE | 2017-10-23 09:39 | PCM.DCSUM1 ---
Discharge Summary - Hospital Course HPI Initial Comments: 52 year old male admitted 10/21/17 with possible ileus or possible partial bowel obstruction, N/V and diarrhea. Brief History: 52 year old male with little pmh, presented to the ED today with concerns of N/V, diarrhea and dehydration. He reported that evening before admission about midnight he started having diarrhea. Approximately 1 hr later he started becoming nauseated and vomiting. He reported this was accompanied by abdominal distension and abdominal cramping. He denied black or bloody BMs, and no hematemesis. He denied recent travel, antibiotic use or questionable food. He reported 2 or so years ago he had Salmonella from contaminated Spinach. He reported feeling very dehydrated, lips and mouth were dry with very little saliva production. Slight fevers and chills, but did not check his temperature. No URI symptoms, no chest pain or palpitations. No urinary symptoms. He denied CAD, DM or abdominal surgeries. He has never been diagnosed with IBS/IBD and has never had a diagnostic colonscopy. He reported being given cards to check stool and those came back normal. He reported 30+ years of smoking history, currently smokes 5-6 cigarettes daily, social alcohol use, and no recreational drug use. - Discharge Data Discharge Date: 10/23/17 Discharge Disposition: Home, Self-Care 01 Condition: Good - Discharge Diagnosis/Problem(s) (1) Diarrhea SNOMED Code(s): 61254500 ICD Code: R19.7 - DIARRHEA, UNSPECIFIED Status: Acute Priority: High (2) Ileus SNOMED Code(s): 118703645 ICD Code: K56.7 - ILEUS, UNSPECIFIED Status: Resolved Priority: High (3) Nausea & vomiting SNOMED Code(s): 29841821 ICD Code: R11.2 - NAUSEA WITH VOMITING, UNSPECIFIED Status: Resolved Priority: High Qualifiers: Vomiting Intractability: non-intractable (4) Partial bowel obstruction SNOMED Code(s): 80941298 ICD Code: K56.600 - PARTIAL INTESTINAL OBSTRUCTION, UNSPECIFIED TO CAUSE Status: Resolved Priority: High Qualifiers: Intestinal obstruction type: unspecified Qualified Code(s): K56.600 - Partial intestinal obstruction, unspecified as to cause - Patient Summary/Data Consults: Consultations 10/21/17 15:29 Consult to Physician [CONS] Routine - Patient Instructions Diet: GI Soft/Low Residue/Low Fiber Activity: Rest and Relax Today Driving: Do Not Drive Showering/Bathing: May Shower (d) Notify Provider of: Fever, Increased Pain, Swelling and Redness, Nausea and/or Vomiting - Discharge Plan Prescriptions/Med Rec: Levofloxacin [Levaquin] 750 mg PO DAILY #4 tab metroNIDAZOLE [Flagyl] 500 mg PO Q8H #12 tab Home Medications: Home Meds Levofloxacin [Levaquin] 750 mg PO DAILY #4 tab 10/23/17 [Rx] metroNIDAZOLE [Flagyl] 500 mg PO Q8H #12 tab 10/23/17 [Rx] Patient Handouts: Ileus, Levofloxacin tablets, Diarrhea, Adult, [id number], Metronidazole tablets or capsules Referrals: Dereck Singleton MD [Physician] - (Please set an appointment within a week. ) - Discharge Summary/Plan Comment DC Time >30 min.: Yes Discharge Summary/Plan Comment: 52 year old male admitted 10/21/17 with possible ileus or possible partial bowel obstruction, N/V and diarrhea. 52 year old male with little pmh, presented to the ED today with concerns of N/V , diarrhea and dehydration. He reported that evening before admission about midnight he started having diarrhea. Approximately 1 hr later he started becoming nauseated and vomiting. He reported this was accompanied by abdominal distension and abdominal cramping. He denied black or bloody BMs, and no hematemesis. He denied recent travel, antibiotic use or questionable food. He reported 2 or so years ago he had Salmonella from contaminated Spinach. He reported feeling very dehydrated, lips and mouth were dry with very little saliva production. Slight fevers and chills, but did not check his temperature. No URI symptoms, no chest pain or palpitations. No urinary symptoms. He denied CAD, DM or abdominal surgeries. He has never been diagnosed with IBS/IBD and has never had a diagnostic colonscopy. He reported being given cards to check stool and those came back normal. He reported 30+ years of smoking history, currently smokes 5-6 cigarettes daily, social alcohol use, and no recreational drug use. In the ED, leukocytosis noted at 18,060. CMP WNL. UA negative, some pyuria noted. Temp 99.0 otherwise VS stable, no tachycardia or hypotension. He was given Zofran IV. Abd/pelvis CT revealed dilated loops of small bowel with focal areas of decompression and enhancement, overall picture of ileus or partial bowel obstruction however given the skip areas an underlying inflammatory condition of Crohn's disease could be considered. He was admitted inpatient for possible ileus, possible partial bowel obstruction. Patient was placed nothing by mouth and IVF resuscitated. He was also started on Levaquin and Flagyl for antibiotic prophylaxis. On second day of admission patient was passing gas and having bowel movements, leukocytosis had completely resolved. His diet was slowly increased and on morning of third day patient was feeling significantly improved, having no more bowel distention or constipation. He was discharged in good condition with a prescription for Levaquin and Flagyl as well as follow-up appointments with primary care and recommended colonoscopy by surgery. Patient is from [place] and will follow up with a surgeon there for his colonoscopy. He was instructed to return to emergency department if he had any new or worsening symptoms. - General Info Date of Service: 10/23/17 Admission Dx/Problem (Free Text: Admission Diagnosis/Problem Admission Diagnosis/Problem Ileus Subjective Update: Markedly improved. No nausea/vomiting. Still some loose stools but passing gas and stool. No abdominal pain. No fevers,chills ready for discharge. Functional Status: Reports: Pain Controlled, Tolerating Diet, Ambulating, Urinating - Review of Systems General: Denies: Fever, Weakness, Fatigue, Malaise HEENT: Denies: Headaches, Visual Changes Pulmonary: Denies: Shortness of Breath, Cough, Sputum, Hemoptysis Cardiovascular: Denies: Chest Pain, Palpitations, Edema Gastrointestinal: Reports: Diarrhea. Denies: Abdominal Pain, Constipation, Nausea, Vomiting Genitourinary: Denies: Dysuria, Hematuria Musculoskeletal: Denies: Neck Pain, Leg Pain Skin: Denies: Cyanosis Neurological: Denies: Confusion, Dizziness, Headache Psychiatric: Denies: Confusion - Patient Data Vitals - Most Recent: Last Vital Signs Temp 97.8 F 10/23/17 08:00 Pulse 68 10/23/17 08:00 Resp 18 10/23/17 08:00 BP 123/60 10/23/17 08:00 Pulse Ox 100 10/23/17 08:00 Weight - Most Recent: 73.936 kg I&O - Last 24 hours: Intake & Output 0210/23/17 10/23/17 22:59 06:59 14:59 Intake Total 100 1699 Output Total 2470 Balance 100 -51 Lab Results - Last 24 hrs: Laboratory Results - last 24 hr 10/23/17 10/23/17 Range/Units 05:52 05:52 WBC 5.51 (4.0-11.0) K/uL RBC 3.99 L (4.50-5.90) M/uL Hgb 12.6 L (13.0-17.0) g/dL Hct 38.9 (38.0-50.0) % MCV 97.5 (80.0-98.0) fL MCH 31.6 (27.0-32.0) pg MCHC 32.4 (31.0-37.0) g/dL RDW Std Deviation 52.8 (28.0-62.0) fl RDW Coeff of Lino 15 (11.0-15.0) % Plt Count 179 (150-400) K/uL MPV 9.10 (7.40-12.00) fL Neut % (Auto) 44.4 L (48.0-80.0) % Lymph % (Auto) 39.9 (16.0-40.0) % [place] % (Auto) 13.1 (0.0-15.0) % Eos % (Auto) 2.4 (0.0-7.0) % Baso % (Auto) 0.2 (0.0-1.5) % Neut # (Auto) 2.5 (1.4-5.7) K/uL Lymph # (Auto) 2.2 (0.6-2.4) K/uL [place] # (Auto) 0.7 (0.0-0.8) K/uL Eos # (Auto) 0.1 (0.0-0.7) K/uL Baso # (Auto) 0.0 (0.0-0.1) K/uL Nucleated RBC % 0.0 /100WBC Nucleated RBCs # 0 K/uL Sodium 140 (136-146) mmol/L Potassium 4.1 (3.5-5.1) mmol/L Chloride 110 (98-110) mmol/L Carbon Dioxide 25 (21-31) mmol/L BUN 11 (6.0-23.0) mg/dL Creatinine 0.8 (0.6-1.5) mg/dL Est Cr Clr Drug Dosing 110.39 mL/min Estimated GFR (MDRD) > 60.0 ml/min Glucose 130 H (60-110) mg/dL Calcium 8.5 L (8.8-10.8) mg/dL UZAIR Results - Last 24 hrs: Microbiology 10/21/17 16:39 Campylobacter Antigen Assay - Final Stool / Feces NEGATIVE CAMPYLOBACTER AG - Final NEGATIVE FOR SHIGA TOXIN 1 - Final NEGATIVE FOR SHIGA TOXIN 2 Med Orders - Current: Current Medications Enoxaparin Sodium (Lovenox) 30 mg SUBCUT DAILY [facility] Last Admin: 10/23/17 08:50 Dose: Not Given Lactated Ringer's (Ringers, Lactated) 1,000 mls @ 125 mls/hr IV ASDIRECTED [facility] Last Admin: 10/23/17 01:43 Dose: 125 mls/hr Levofloxacin/Dextrose 750 mg/ (Premix) 150 mls @ 100 mls/hr IV Q24H [facility] Last Admin: 10/22/17 15:28 Dose: 100 mls/hr Metronidazole 500 mg/ Premix 100 mls @ 100 mls/hr IV QID [facility] Last Admin: 10/23/17 06:57 Dose: 100 mls/hr Ondansetron HCl (Zofran) 4 mg IVPUSH Q4H PRN PRN Reason: Nausea Pantoprazole Sodium (Protonix Iv) 40 mg IV Q12HR [facility] Last Admin: 10/23/17 08:46 Dose: 40 mg Discontinued Medications Calcium Carbonate/Glycine (Tums) 1,000 mg PO ONETIME ONE Stop: 10/22/17 10:08 Last Admin: 10/22/17 11:38 Dose: 1,000 mg Calcium Carbonate/Glycine (Tums) 1,000 mg PO ONETIME ONE Stop: 10/23/17 07:32 Last Admin: 10/23/17 08:46 Dose: 1,000 mg Sodium Chloride (Normal Saline) 500 mls @ 999 mls/hr IV STAT [facility] Sodium Chloride (Normal Saline) 500 mls @ 150 mls/hr IV STAT [facility] Lactated Ringer's (Ringers, Lactated) 1,000 mls @ 999 mls/hr IV .BOLUS ONE Stop: 10/21/17 16:30 Last Admin: 10/21/17 15:08 Dose: 999 mls/hr Iopamidol (Isovue Multipack-370 (76%)) 90 ml IVPUSH ONETIME STA Stop: 10/21/17 12:58 Last Admin: 10/21/17 12:57 Dose: 90 ml Metoclopramide HCl (Reglan) 10 mg IV ONETIME ONE Stop: 10/21/17 14:03 Last Admin: 10/21/17 16:55 Dose: Not Given Morphine Sulfate (Morphine) 3 mg IVPUSH Q2H PRN PRN Reason: Pain (severe 7-10) Stop: 10/22/17 14:54 Ondansetron HCl (Zofran) 8 mg IVPUSH ONETIME ONE Stop: 10/21/17 11:33 Last Admin: 10/21/17 12:02 Dose: 8 mg - Exam Quality Assessment: Reports: DVT Prophylaxis General: Reports: Alert, Oriented, Cooperative, No Acute Distress HEENT: Reports: Pupils Equal, Pupils Reactive, EOMI, Mucous Membr. Moist/[place] Neck: Reports: Supple, Trachea Midline, No JVD Lungs: Reports: Clear to Auscultation, Normal Respiratory Effort Cardiovascular: Reports: Regular Rate, Regular Rhythm GI/Abdominal Exam: Normal Bowel Sounds, Soft, Non-Tender, No Organomegaly, No Distention (Male) Exam: Deferred Back Exam: Reports: Normal Inspection Extremities: Normal Inspection, Non-Tender, No Pedal Edema, Normal Capillary Refill Skin: Reports: Warm, Dry, Intact Neurological: Reports: No New Focal Deficit Psy/Mental Status: Reports: Alert, Normal Affect, Normal Mood *Q Meaningful Use (DIS) - VTE *Q VTE Criteria *Q: - Stroke *Q Stroke Criteria *Q: - AMI *Q AMI Criteria *Q:
== END 2017-10-23 11:10 | disposition home or self-care (01) | DRG 247 ==
LOC: MW.ED 11:21 → MW.MS 14:01
PROVIDERS: ADMIT Family Medicine; ATTEND Family Medicine
DX: K56.7 Ileus, unspecified (principal); K56.600 Partial intestinal obstruction, unspecified as to cause; R19.7 Diarrhea, unspecified; R11.2 Nausea with vomiting, unspecified; E86.0 Dehydration; F17.210 Nicotine dependence, cigarettes, uncomplicated; Z91.040 Latex allergy status; Z88.8 Allergy status to other drugs, medicaments and biological substances
CPT/HCPCS: 36415; 74177; 74177-26; 80048; 80053; 81001; 83630; 83690; 85025; 87046; 87324; 87899; 96374; 99283; 99285-25; A9270-GY; C9113; J1650; J1956; J2405; J7120; Q9967